=== PATIENT | female | born 1985 | race Caucasian/White ===

== ENCOUNTER 2017-04-04 07:33 | Emergency (ER) | payer OTHER ==
[~2017-04-04] VITALS: Ht 165.1 cm; Wt 77.0 kg
[2017-04-04 07:38] VITALS: BP 105/67; PULSE 86; RESP 16; TEMP 97.7; O2SAT 98
--- NOTE | 2017-04-04 07:42 | PD ---
HPI Chief Complaint: Injury Time Seen by Provider: 07:42 Travel History International Travel<30 days: No Contact w/Intl Traveler<30days: No Traveled to known affect area: No History of Present Illness HPI 32-year-old female came to the emergency room with history of right pinky toe injury that occurred 1 week ago. Patient says that it got caught on something and she tripped and the toe was pulled. The patient is an IR nurse at [employer] and did get an x-ray there unofficially which showed a fracture but she wanted to come here and get an official x-ray and possibly a postop shoe. No other issues. Vital signs are stable. Patient is ambulating. [facility] Past Medical History Narrative Medical List of her past medical, surgical, social and family history is reviewed from the nursing note. Social History Tobacco Use: No Allergies-Medications (Allergen,Severity, Reaction): Coded Allergies: No Known Allergies (Verified Allergy, Unknown, 04/04/17) Comments No known drug allergies. Reported Meds & Prescriptions Reported Meds & Active Scripts Active Reported Iron (Ferrous Sulfate) 18 Mg Tab Vitamin C (Ascorbic Acid) 250 Mg Tab 250 Mg PO DAILY Narrative Medication List of her home medications reviewed from the nursing note. Review of Systems Except as stated in HPI: all other systems reviewed are Neg Physical Exam Narrative GENERAL: Awake, alert, no obvious distress SKIN: Focused skin assessment warm/dry. HEAD: Atraumatic. Normocephalic. EYES: Pupils equal and round. No scleral icterus. No injection or drainage. ENT: No nasal bleeding or discharge. Mucous membranes pink and moist. NECK: Trachea midline. No JVD. CARDIOVASCULAR: Regular rate and rhythm. No murmur appreciated. RESPIRATORY: No accessory muscle use. Clear to auscultation. Breath sounds equal bilaterally. GASTROINTESTINAL: Abdomen soft, non-tender, nondistended. Hepatic and splenic margins not palpable. Right pinky toe is swollen and slight bruising dorsally. Good cap refill distally. MUSCULOSKELETAL: No obvious deformities. No clubbing. No cyanosis. No edema. NEUROLOGICAL: Awake and alert. No obvious cranial nerve deficits. Motor grossly within normal limits. Normal speech. PSYCHIATRIC: Appropriate mood and affect; insight and judgment normal. Data Data Last Documented VS Orders Orders Toe (Min 2vws) (04/04/17 ) Shoe Post Op (04/04/17 ) ^ Other Nursing Orders (04/04/17 08:08) Support Splint (04/04/17 08:18) Ed Discharge Order (04/04/17 08:22) Shoe Cast (04/04/17 ) MDM Medical Decision Making Medical Screen Exam Complete: Yes Emergency Medical Condition: Yes Medical Record Reviewed: Yes Differential Diagnosis Toe fracture Narrative Course 8:06 AM awaiting for the x-ray to be done and resulted. 8:30 AM as per the radiologist there is positive for fracture of the small phalanx of the fifth toe. I have ordered for mihir tape and postop shoe. Diagnosis Primary Impression: Toe fracture, right Qualified Codes: S92.514A - Nondisplaced fracture of proximal phalanx of right lesser toe(s), initial encounter for closed fracture Referrals: Primary Care Physician Additional Instructions: Keep the postop shoe and where it for another week or 2. Follow-up with your primary care. Return to the ER if condition worsens or any other new concerns. Disposition: 01 DISCHARGE HOME Condition: Stable Jesse Roberson MD Apr 04, 2017 07:42
[2017-04-04] MEDS ORDERED: VITA250T3 PO (08:01)
[2017-04-04] MEDS ORDERED: IRON18TA (08:01)
--- NOTE | 2017-04-04 08:12 | RADRPT ---
EXAM DATE/TIME: 04/04/2017 07:51 [facility] COMPARISON: No previous studies available for comparison. INDICATIONS : Stubbed toe on door MEDICAL HISTORY : None. SURGICAL HISTORY : None. ENCOUNTER: Initial ACUITY: 4 - 6 days PAIN SCORE: 8/10 LOCATION: Right 5th toe FINDINGS: There is fracturing of the distal aspect of the fifth proximal phalanx. Significant displacement is n ot seen. Involvement of the joint space is not seen. CONCLUSION: Fracturing of the fifth proximal phalanx. Taran Vela MD on April 04, 2017 at 8:09 Board Certified Radiologist. This report was verified electronically.
== END 2017-04-04 08:40 | disposition home or self-care (01) ==
LOC: PHED 07:33
DX: S92.514A Nondisplaced fracture of proximal phalanx of right lesser toe(s), initial encounter for closed fracture (principal); W18.00XA Striking against unspecified object with subsequent fall, initial encounter
CPT/HCPCS: 73660; 99283; L3260